=== PATIENT | male | born 1970 | race Caucasian/White ===

== ENCOUNTER → 2018-01-29 | Day surgery (SDC) | payer OTHER ==
[~2018-01-29] MED LIST: ACETAMINOPHEN 1000 MG/100 ML 100 ML IV ONE; ACETAMINOPHEN/HYDROcodone 325 MG/5 MG TAB ONE; BACT2OIN TOP; BACT800T5 PO; BUPIVACAINE/EPINEPHRINE 0.25% 50 ML VIAL ONE; KETOROLAC TROMETHAMINE 30 MG/ML (IVP) VIAL IV PUSH ONE; LACTATED RINGER'S 1000 ML INJ 1,000 ML ONE; MIDAZOLAM HCL 2 MG/2 ML VIAL ONE; ONDANSETRON HCL 4 MG/2 ML VIAL IV PUSH ONE; PROPOFOL 200 MG/20 ML AMP IV ONE; SODIUM CHLOR 0.9% 250 ML INJ 250 ML IV ONE; VANCOMYCIN HCL 1000 MG VIAL ONE
--- NOTE | 2018-01-29 14:32 | PD.PROCEDR ---
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 He does have a labor. Physical exam demonstrated incidentally asymptomatic discovered left inguinal hernia and a small tender umbilical hernia. Plans were made for operative repair. Intraoperative findings Bilateral indirect and direct inguinal hernias. Small umbilical hernia. Estimated blood loss less than 5 mL. Description of procedure in detail The patient was identified as Marcel Bunch taken to the operating room and placed in the supine position. Sequential compression device were placed on bilateral lower extremities. Following induction of adequate general anesthesia the patient's abdomen was prepped and draped in usual sterile fashion with Betadine. A timeout procedure was performed. Following completion of timeout procedure everyone's satisfaction within the room proposed infraumbilical 2 cm transverse incision was made with a marking pen. Local anesthetic was placed beneath the proposed incision around the umbilicus. Incision was carried out the scalpel and the umbilical skin was lifted off the herniated preperitoneal fatty tissue using Metzenbaum scissors. Umbilical hernia defect was small approximately 1 cm in size. The anterior rectus fascia was identified on the left side and incised its medial border with a scalpel allowing for development of a preperitoneal plane with the surgeon's finger directed towards the pubic symphysis. The preperitoneal dissecting balloon was placed in the preperitoneal space, and under direct laparoscopic view inflated to a total of approximately 25 pumps which allowed identification of the pubic symphysis bilateral Lux's ligaments and inferior epigastric vessels. 2 infraumbilical 5 mm trochars were then placed in the preperitoneal space under direct laparoscopic view after incision and skin with a scalpel. Attention was turned to the left side. Blunt graspers were used to identify the inferior epigastric vessels and to create blunt dissection lateral and posterior the spermatic cord. The anterior medial surface was examined and using the blunt graspers a indirect inguinal hernia sac was reduced from the internal inguinal ring to the base of the spermatic cord. A small your present direct hernia defect was identified. A 3 4 x 6" piece of atrium Prolite mesh was cut from a 6 x 6" piece in an anterolateral slit was created. Mesh was placed around the spermatic cord intact position of the tacking device. A single tack was used to approximate the anterolateral slit and a single tack was placed in the inferior lateral Lux's ligament. A 2 x 5" piece of the mesh was placed across the anterolateral slit and placed in to position with tacks. Tacks were placed inferior medially on Lux's ligament superomedially and superolaterally. Photograph was taken to complete the repair. Care was taken to avoid tach placement inferolaterally to avoid cutaneous nerve injury. Attention was then turned to the right side. Similar blunt dissection ensued. The anteromedial surface of the spermatic cord is examined in an indirect inguinal hernia sac was reduced to the base of spermatic cord from the internal inguinal ring using the blunt graspers. A deeper direct hernia defect was identified in the pseudo-sac was tacked down to the Lux's ligament with a single tack. A 4 x 6" piece of the atrium Prolite mesh was cut with an anterolateral slit placed around the spermatic cord intact position with the tacking device. Single tack was placed to approximate the anterolateral slit and a single tack and inferior lateral Lux's ligament. A 2 x 5" piece of the mesh was then placed across the anterolateral slit and help position of the tacking device. Single tack was placed superior lateral one inferior medial and one superior medial. Care was taken to avoid tach placement inferolaterally to avoid cutaneous nerve injury. Photographs were taken and completed repairs. Local anesthetic was then placed in the preperitoneal space. Trocars were removed under direct visualization there was no evidence of bleeding from trocar sites. Preperitoneal space was actively desufflated to the infraumbilical port which was then removed. The anterior rectus fascial incision was closed with running 2-0 Vicryl suture. The umbilical hernia defect was approximated with 3 interrupted inverted 0 Prolene sutures. The umbilicus was reformed to its normal inward projection using interrupted 2-0 Vicryl sutures. The skin incisions were approximated for Monocryl subcuticular sutures. Dressings were applied with Mastisol half-inch brown Steri-Strips, 4 x 4 gauze and Tegaderm were placed over the umbilicus. The patient tolerated the procedure without apparent complication. Sponge needle and instrument counts were correct at the end of the case. Ramshaw,Marcel G. MD Jan 29, 2018 14:32
== END | disposition home or self-care (01) ==
LOC: ESDC 11:04
PROVIDERS: ATTEND Surgery Trauma Surgery
DX: K40.20 Bilateral inguinal hernia, without obstruction or gangrene, not specified as recurrent (principal); K42.9 Umbilical hernia without obstruction or gangrene
CPT/HCPCS: 00750; 00840; 49585; 49650; C1727; C1781; J0131; J1885; J2250; J2405; J3010; J3370; J7050; J7120